=== PATIENT | male | born 1965 ===

== ENCOUNTER 2017-01-10 10:30 | Emergency (ER) | payer OTHER ==
[2017-01-10 10:46] VITALS: RESP 20; TEMP 97.6
[2017-01-10] MEDS ORDERED: CEFTRIAXONE 1 GM PDS IM ONE (11:11)
[2017-01-10] MEDS ORDERED: KETOROLAC TROMETHAMINE 30 MG/ML SOL IM ONE (11:11)
[2017-01-10] MEDS ORDERED: CEFTRIAXONE 1 GM PDS ONE (11:12)
[2017-01-10] MEDS ORDERED: KETOROLAC TROMETHAMINE 30 MG/ML SOL ONE (11:12)
[2017-01-10] MEDS ORDERED: LIDOCAINE HCL 1% MPF SOL ONE (11:12)
[2017-01-10 11:27] VITALS: O2SAT 98
[2017-01-10 11:45] VITALS: PULSE 112
[2017-01-10] MEDS ORDERED: LORAZEPAM 0.5 MG TAB PO ONE (11:45)
[2017-01-10] MEDS ORDERED: LORAZEPAM 0.5 MG TAB ONE (11:46)
[2017-01-10 12:06] VITALS: BP 126/85
== END 2017-01-10 12:16 | disposition home or self-care (01) | DRG 159 ==
LOC: ED 10:30
DX: K04.7 Periapical abscess without sinus (principal); K02.9 Dental caries, unspecified; K03.81 Cracked tooth; K05.00 Acute gingivitis, plaque induced
CPT/HCPCS: 99284; J0696; J1885; J2001